=== PATIENT | male | born 1950 | race Caucasian/White ===

== ENCOUNTER 2019-07-08 16:26 | Day surgery (SDC) ==
[2019-07-08] MEDS ORDERED: XYLOCAINE-MPF 2% ONE (16:56)
[2019-07-08] MEDS ORDERED: KEFZOL 1 GM/D5W 2 GM/100 ML IVPB ONE (16:57)
[2019-07-08] MEDS ORDERED: DIPRIVAN 1% ONE (16:57)
[2019-07-08] MEDS ORDERED: LR 1,000 ML ONE (16:57)
[2019-07-08 17:11] LABS: HEMATOCRIT 36.4 % (42.0-52.0); MCHC 30.2 g/dL (33-37); MCV 86.1 FL (81-99); MPV 9.6 FL (7.4-10.4); RBC 4.23 XMIL (4.7-6.1); RDW 14.7 % (11.5-14.5); WBC 6.42 X1000 (4.8-10.8)
[2019-07-08] MEDS ORDERED: QUELICIN (DOSE) ONE (17:26)
[2019-07-08 17:42] LABS: AGAP 12; BUN 14 mg/dL (8-22); CHLORIDE 102 mmol/L (98-107); COSMO 282; CREATININE 0.8 mg/dL (0.7-1.2); ESTIMATED GFR > 60; GLUCOSE 103 mg/dL (70-104); POTASSIUM 4.1 mmol/L (3.5-5.1); SODIUM 141 mmol/L (136-145); TCO2 27 mmol/L (25-35)
[2019-07-08] MEDS ORDERED: PEPCID ONE (17:45)
[2019-07-08] MEDS ORDERED: REGLAN ONE (17:45)
[2019-07-08] MEDS ORDERED: ZOFRAN ONE (18:12)
[2019-07-08] MEDS ORDERED: DECADRON ONE (18:12)
[2019-07-08] MEDS ORDERED: ZEMURON ONE (18:31)
[2019-07-08] MEDS ORDERED: FENTANYL ONE (18:33)
[2019-07-08] MEDS ORDERED: EPHEDRINE ONE (18:47)
[2019-07-08] MEDS ORDERED: PHENERGAN IV PRN ×2 (19:29→21:07)
[2019-07-08] MEDS ORDERED: SODIUM CHLORIDE 0.9% INJ PRN ×2 (19:30→21:15)
[2019-07-08] MEDS ORDERED: NORCO-5 PO PRN ×2 (19:30→21:15)
[2019-07-08] MEDS ORDERED: NORCO-10 PO PRN ×2 (19:30→21:15)
[2019-07-08] MEDS ORDERED: LABETALOL IV PRN (19:30)
[2019-07-08] MEDS ORDERED: NORCO-7.5 PO PRN ×2 (19:30→21:15)
[2019-07-08] MEDS ORDERED: NS 1,000 ML ONE (19:44)
[2019-07-08] MEDS: NS 1,000 ML IV SCH (20:31)
[2019-07-08] MEDS ORDERED: NS 1,000 ML IV SCH (22:00)
[2019-07-08] MEDS: COLACE PO SCH (22:07)
--- NOTE | 2019-07-09 06:42 | OPERATIVE NOTE ---
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 POSTOPERATIVE DIAGNOSES: 1. 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 2. Spontaneous voiding with complete emptying of the bladder. ANESTHESIA: General endotracheal. FINDINGS: Cystoscopic exam: Urethra with hopper urethral stricture disease. A 6.9-[place]ib[place] short ureteroscope was passed through the patient's urethra, and got into the bulbar area, but could not be advanced up into the bladder. The ureteroscope was removed, and multiple attempts were made to find the bladder with a 22-gauge spinal needle without success. DESCRIPTION OF PROCEDURE: After informed consent was obtained from the patient and his guardian, and him receiving IV antibiotics, he was taken to the main OR cystoscopy room, and placed in the supine position. General endotracheal anesthesia was achieved. He was then placed in the low lithotomy position taking care of his newly replaced right hip. He was prepped and draped sterilely for lower abdominal surgery and cystoscopic exam. The 21-[place]ib[place]ian sheath cystoscope was passed to the patient's meatus, but could not be advanced very far into the urethra secondary to stricture. The 21-[place]ib[place] sheath cystoscope was removed, and a 6.9-[place] short ACMI ureteroscope was advanced through the patient's urethra, and was able to make it to the proximal bulbar area, but not any further. The ureteroscope was removed. A 22-gauge spinal needle was used to probe the suprapubic tube area to try to find the bladder without success. A tap block ultrasound machine was used to attempt to visualize the bladder without success. Several small areas were seen, but no urine returned when the spinal needle was placed into these areas. Apparently, the patient voided a significant amount prior to the procedure. After the ultrasound machine visualized a possible bladder area, a stab incision was made 2 fingerbreadths above the pubic bone in the midline. The Carlos suprapubic tube introducer was pushed down to this area, but no urine returned. The suprapubic tube introducer was removed. The skin was reapproximated with 1 horizontal mattress suture of 2-0 silk. He tolerated the procedure well. Estimated blood loss less than 5 mL. He was extubated, and taken to the recovery room in good condition. cc: Anoop Holman MD
[2019-07-09 07:41] VITALS: BP 122/74
[2019-07-09] MEDS: NS 1,000 ML IV SCH (08:46)
[2019-07-09] MEDS: COLACE PO SCH (08:47)
[2019-07-09] MEDS ORDERED: PERIDEX MT SCH (09:00)
[2019-07-09] MEDS ORDERED: ASPIRIN PO SCH (09:00)
[2019-07-09] MEDS ORDERED: PATIENT'S OWN MED PO SCH ×2 (09:00)
== END 2019-07-09 10:03 | disposition home or self-care (01) ==
LOC: OR 16:26 → INTOOBSV 20:49 → 4N 20:49 → OR 07-09 10:06
PROVIDERS: ATTEND Urology